=== PATIENT | male | born 1990 | race Caucasian/White ===

== ENCOUNTER 2023-06-20 16:41 | Emergency (ER) | payer MEDICAID | END 2023-06-20 19:33 | disposition home or self-care (01) | LOC: JP.ED 16:41 | DX: S91.312A Laceration without foreign body, left foot, initial encounter (principal); Z88.5 Allergy status to narcotic agent; V86.96XA Unspecified occupant of dirt bike or motor/cross bike injured in nontraffic accident, initial encounter | CPT/HCPCS: 73630-26-LT; 73630-LT; 99283 ==